=== PATIENT | male | born 1995 | race Hispanic/Latino ===

== ENCOUNTER → 2023-12-19 | Day surgery (SDC) | payer OTHER ==
[~2023-12-19] MED LIST: DEXAMETHASONE SOD PHOS INJ 4 MG/ML SDV ONE; FENTANYL CITRATE/PF 100MCG/2 ML INJ ONE; LIDOCAINE HCL 2% LOCAL INJ 5 ML SDV VIAL INJ ONE; METOCLOPRAMIDE HCL 10 MG/2ML VIAL ONE; NAPROXEN250 MG PO; ONDANSETRON HCL INJ 2MG/ML 2ML 2 MG/ML VIAL ONE; PROPOFOL IV EMULSION 10 MG/ML 20 ML VIAL ONE; SEVOFLURANE INHAL SOLN 250 ML PEN BTL ONE
[2023-12-19] MEDS: LACTATED RINGER'S 1,000 ML ONE (07:21)
[2023-12-19] MEDS: KETOROLAC TROMETHAMINE 30 MG/ML VIAL ONE (10:07)
[2023-12-19] MEDS: HYDROMORPHONE 1MG/1ML INJ ONE (10:17)
[2023-12-19 11:15] VITALS: BP 158/93; PULSE 88; RESP 18; O2SAT 98
== END ==
LOC: OR 06:33
PROVIDERS: ATTEND Specialist
DX: S83.252A Bucket-handle tear of lateral meniscus, current injury, left knee, initial encounter (principal); I10 Essential (primary) hypertension; E66.01 Morbid (severe) obesity due to excess calories; X58.XXXA Exposure to other specified factors, initial encounter; Y92.89 Other specified places as the place of occurrence of the external cause; Z79.1 Long term (current) use of non-steroidal anti-inflammatories (NSAID); Z68.43 Body mass index [BMI] 50.0-59.9, adult
CPT/HCPCS: 29882; J0690; J1170; J1885; J3010; J7121; J1100; J2001; J2405; J2765

== ENCOUNTER 2024-02-12 14:10 | Outpatient (RCR) | payer OTHER ==
[~2024-02-12 14:10] MED LIST changes: -DEXAMETHASONE SOD PHOS INJ 4 MG/ML SDV ONE; -FENTANYL CITRATE/PF 100MCG/2 ML INJ ONE; -LIDOCAINE HCL 2% LOCAL INJ 5 ML SDV VIAL INJ ONE; -METOCLOPRAMIDE HCL 10 MG/2ML VIAL ONE; -ONDANSETRON HCL INJ 2MG/ML 2ML 2 MG/ML VIAL ONE; -PROPOFOL IV EMULSION 10 MG/ML 20 ML VIAL ONE; -SEVOFLURANE INHAL SOLN 250 ML PEN BTL ONE
== END 2024-02-13 ==
LOC: PT 14:10
PROVIDERS: ATTEND Physician Assistant
DX: Z47.89 Encounter for other orthopedic aftercare (principal); S83.252D Bucket-handle tear of lateral meniscus, current injury, left knee, subsequent encounter

== ENCOUNTER 2024-03-19 10:37 | Outpatient (RCR) | payer OTHER | END 2024-04-14 | LOC: PT 10:37 | PROVIDERS: ATTEND Physician Assistant | DX: Z47.89 Encounter for other orthopedic aftercare (principal); S83.252D Bucket-handle tear of lateral meniscus, current injury, left knee, subsequent encounter ==